=== PATIENT | male | born 1990 | race Caucasian/White ===

== ENCOUNTER 2025-08-03 12:46 | Outpatient (CLI) | payer BC, SELFPAY ==
--- NOTE | 2025-08-03 13:00 | MR_ITS ---
[address] [address] Phone:?[phone] Fax:?[phone] Referring Physician Information: Mj Lopez [address] [facility] [address] Phone:?[phone] Fax:?[phone] Patient:Kimmy Abdalla D.O.B:?1990 Sex:?Male Phone:?[phone] [facility] MRN:[id number] Exam Date:?08/03/2025 Original Report EXAM: MRI of the RIGHT KNEE, without contrast CLINICAL INFORMATION: Male, 35 years old, with right knee pain. INDICATION: Evaluate for loose body. PRIOR SURGERY: None reported. PLAIN FILMS: Knee radiographs dated 07/16/2025. COMPARISONS: No prior MRIs available. TECHNICAL INFORMATION: Using a 1.5T MR scanner and a localizing surface coil: sagittals: PD, PDFS coronals: PD, T2FS axials: PD, PDFS SEDATION: None CONTRAST: None FINDINGS: Knee joint: Effusion: Trace-small right knee effusion. Popliteal cyst: None. Loose bodies: None. Subcutaneous and extra-articular soft tissues: Unremarkable. Ligaments: ACL: Intact ACL anteromedial and posterolateral bundles, without sprain or tear. PCL: Intact PCL, without acute or chronic injury. MCL: Intact MCL superficial and deep layers, without injury. LCL: Intact LCL, without injury. Posterolateral corner: No posterolateral corner soft tissue injury. Popliteus, biceps femoris, iliotibial band, popliteofibular ligament and lateral gastrocnemius are intact. Posteromedial corner: No posteromedial corner soft tissue injury. Semimembranosus, pes anserine tendons and posterior oblique ligament are without injury, tendinopathy or bursitis. Extensor mechanism: Patellar tendon: Intact, without tendinopathy. Quadriceps tendon: Intact, without tendinopathy. Retinacula: Medial and lateral retinacula are intact. Fat pads: Mild edema-like signal is present in the superolateral aspect of Hoffa's fat pad (sagittal PDFS series 6 image 9). Medial compartment: Medial meniscus: No articular surface, meniscosynovial junction or root tear. No displacement or extrusion. A 9 x 11 x 7 mm ganglion cyst is incidentally noted near the posterior root of the medial meniscus (sagittal PDFS series 6 image 19 and axial T2FS series 4 image 23) Medial femoral condyle: No chondromalacia or osteochondral abnormality. Medial tibial plateau: No chondromalacia or osteochondral abnormality. Lateral compartment: Lateral meniscus: No articular surface, meniscosynovial junction or root tear. No displacement, extrusion or parameniscal cyst. Lateral femoral condyle: No chondromalacia or osteochondral abnormality. Lateral tibial plateau: No chondromalacia or osteochondral abnormality. Patellofemoral joint: Patella: No chondromalacia or osteochondral abnormality. Trochlea: No chondromalacia or osteochondral abnormality. Proximal tibiofibular joint: Unremarkable, without evidence of ligament sprain injury, joint effusion or adjacent marrow edema. Bones: No stress/occult fractures or other marrow edema/pathology. IMPRESSION: 1. 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 2. Approximately 9 x 11 x 7 mm ganglion cyst near the posterior root of the medial meniscus. However, there is no discrete medial or lateral meniscal tear. 3. Trace-small knee joint effusion. No popliteal (Adkins's) cyst. 4. No cruciate or collateral ligament sprain/tear. 5. No chondromalacia or osteochondral lesion/defect. 6. No osseous or myotendinous abnormality. BC Electronically signed on 08/04/2025 10:27:00 AM by Phillip Santizo M.D. Addendum A This MRI of the right knee is reviewed, as requested, with respect to the clinical suspicion/presentation of medial joint body. Upon further review there is an up to approximately 12 x 13 x 5 mm well-defined ovoid focus interposed between the proximal aspect of the medial retinaculum/capsule and the underlying anterior aspect of the medial humeral epicondyle (axial image 18; sagittal image 24; coronal image 11). Signal intensity of this focus is intermediate-low on proton density and fluid sensitive sequences. Morphology does not appear convincing for chondral loose body. In addition, there is no evidence for chondral donor site other than the presence of a very small chondral fissure of the inferomedial margin of the patella, of doubtful relationship (axial PD & T2FS series 3 & 4, image 11). MR appearance does not appear convincingly ossific, which appears supported by review of the 07/16/2025 radiographic series which does not show associated calcific/osseous component. This well-defined mass abuts the overlying anteromedial joint capsule but without extension through it. 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 No evidence for other soft tissue foci/masses. Other soft tissue tumor would would not be necessarily excluded with complete certainty although thought much less likely. This would be expected to be visualized at any contemplated arthroscopic evaluation. If arthroscopy is not performed at this time, clinical follow-up is warranted and if there is any progression of symptoms, consideration could be given to repeat MRI examination to evaluate for any interval change versus stability. F Electronically signed on 08/13/2025 5:05:00 PM by Frank Giang M.D.
== END 2025-08-03 12:47 | disposition home or self-care (01) ==
LOC: MRI 12:47
PROVIDERS: Visit Provider Physician Assistant
DX: M25.561 Pain in right knee (principal); M67.461 Ganglion, right knee; M25.461 Effusion, right knee
CPT/HCPCS: 73721

== ENCOUNTER 2025-10-23 06:45 | Day surgery (SDC) | payer BC, SELFPAY ==
[2025-10-16 07:29] VITALS: BMI 28.6
[2025-10-23] VITALS (11 sets, daily range): BP systolic 126–140; BP diastolic 70–91; PULSE 62–74; RESP 12–18; TEMP 36.3–36.9; O2SAT 93–98; BMI 26.4
--- NOTE | 2025-10-23 07:13 | W.PM.H&PU ---
History & Physical Update History & Physical Update H&P Reviewed and patient assessed: The following changes are noted below H&P Updates: Right medial-sided knee mass has been present for approximately a months. Mass continues to be symptomatic, patient now wishes for it to be surgically excised. Risks and benefits of procedure consisting of right knee arthroscopic mass excision were discussed with patient, all questions were answered and informed consent was obtained.
--- NOTE | 2025-10-23 07:16 | P.ORPRC_ITS ---
Procedure Note Date of procedure: 10/23/25 Procedure: PREOPERATIVE DIAGNOSIS: 1. Right knee intra-articular soft tissue mass POSTOPERATIVE DIAGNOSIS: 1. Right knee intra-articular soft tissue mass PROCEDURE: 1. Right knee arthroscopic soft tissue mass excision SURGEON: Sandro Deluca M.D. DIRECTOR CHEMISTRY: Nik Canseco An assistant film editor was critical for this case to aid in patient positioning, knee manipulation, instrument exchange, and wound closure. ANESTHESIA: General EBL: 0 mL TOURNIQUET: 11 minutes at 250 mmHg COMPLICATIONS: None SPECIMENS: Intra-articular soft tissue mass which measured 1.5 x 1 cm sent for pathology INDICATIONS: Patient is a 35-year-old male with a month history of soft tissue mass in the anterior medial aspect of his knee which was causing clicking and catching. MRI revealed benign-appearing soft tissue mass which appeared to be adherent to the capsule on the anterior medial aspect of the knee. Patient was of soft word surgical intervention consisting of arthroscopic mass excision. Prior to surgery risks and benefits were discussed with patient, all questions were answered, and informed consent was obtained. FINDINGS: Examination under anesthesia revealed small effusion but no warmth erythema. Full knee range of motion. Knee was stable to varus and valgus stress. Dustin's and posterior drawer test were negative. Intra-articular examination revealed a pedunculated soft tissue mass adherent to the anterior medial joint capsule that measured approximately 1 and half by 1 cm. The remainder of the knee was normal appearance. Normal appearing cartilage in the medial, lateral, patellofemoral compartments. Medial and lateral menisci were intact. ACL PCL were intact. No intra-articular loose bodies. DESCRIPTION OF PROCEDURE: Patient was seen preoperatively and operative site was marked. He was then brought the operating room and placed in the supine position on the OR table. 2 g IV Ancef was administered preoperatively for prophylaxis. Induction of anesthesia was provided by anesthesia staff. The rig ht lower extremity was prepped and draped in the appropriate sterile fashion. A surgical time-out was performed confirming patient identity, surgical site, and procedure. The right lower extremity was exsanguinated and tourniquet inflated to 250 mm Hg. Anterolateral and anteromedial portals were injected with 0.25% Marcaine with epinephrine. Anterior lateral portal was established. Anterior medial portal was established after localization with spinal needle. Diagnostic arthroscopy was performed with findings as noted above. A small portion of the retropatellar fat pad was excised to allow for adequate visualization. Attention was then directed to the soft tissue mass which was noted to be adherent to the anterior medial aspect of the joint capsule near the medial joint line. A pituitary rongeur was used to grasp the soft tissue mass and from the joint. Arthroscopic shaver was then used to debride the remnant stalk. Fluid was then drained from the joint and arthroscopic instruments were removed. Portal sites were closed with 3-0 Monocryl with Steri-Strips and sterile dressings were applied. Patient was awoken from anesthesia and transferred to the PACU in stable condition. PLAN: 1. Weightbear as tolerated right lower extremity. Gradually advance activities as tolerated. 2. Ice, elevation, acetominophen and/or ibuprofen for pain as needed. 3. Knee range of motion and quad sets/straight leg raise regularly 4. Follow up in orthopedic clinic in 1-2 weeks for a wound check.
[2025-10-23] MEDS: LACTATED RINGERS 1000 ML 1,000 ML 100 ML IV (07:26)
[2025-10-23] MEDS: SODIUM CHLORIDE 0.9 % (FLUSH) 10 ML SYRINGE IVF (07:26)
--- NOTE | 2025-10-23 08:35 | P.ANES_ITS ---
Anesthesia Charges Start Date/Time Anesthesia Start Date: 10/23/25 Anesthesia Start Time: 07:37 Stop Date/Time Anesthesia Stop Date: 10/23/25 Anesthesia Stop Time: 08:35 Coding CPT Codes CPT Codes: ANESTH KNEE JOINT SURGERY - 61172 ([id number]) P1 - NORMAL HEALTHY PATIENT, QK - PERSONAL CLOTHING LAUNDRY AIDE 2-4 CNCRNT ANES PROC, QX - SSRS REPORT DEVELOPER SVAurelia W/ MED DIRECTION
--- NOTE | 2025-10-23 08:35 | W.ANESCHARGE ---
Anesthesia Charges Start Date/Time Anesthesia Start Date: 10/23/25 Anesthesia Start Time: 07:37 Stop Date/Time Anesthesia Stop Date: 10/23/25 Anesthesia Stop Time: 08:35 Coding CPT Codes CPT Codes: ANESTH KNEE JOINT SURGERY - 05914 ([id number]) P1 - NORMAL HEALTHY PATIENT, QK - UI ENGINEER 2-4 CNCRNT ANES PROC, QX - SLIP CASTER SVAurelia W/ MED DIRECTION
--- NOTE | 2025-10-23 08:36 | P.ANES_ITS ---
Anesthesia Charges Start Date/Time Anesthesia Start Date: 10/23/25 Anesthesia Start Time: 07:37 Stop Date/Time Anesthesia Stop Date: 10/23/25 Anesthesia Stop Time: 08:35 Coding CPT Codes CPT Codes: ANESTH KNEE JOINT SURGERY - 11416 ([id number]) P1 - NORMAL HEALTHY PATIENT, QK - WINDOW TREATMENT INSTALLER 2-4 CNCRNT ANES PROC, QX - STYLIST ASSISTANT SVAurelia W/ MED DIRECTION
--- NOTE | 2025-10-23 08:36 | W.ANESCHARGE ---
Anesthesia Charges Start Date/Time Anesthesia Start Date: 10/23/25 Anesthesia Start Time: 07:37 Stop Date/Time Anesthesia Stop Date: 10/23/25 Anesthesia Stop Time: 08:35 Coding CPT Codes CPT Codes: ANESTH KNEE JOINT SURGERY - 57156 ([id number]) P1 - NORMAL HEALTHY PATIENT, QK - CLINICAL COURIER 2-4 CNCRNT ANES PROC, QX - PHARMACOGNOSY TEACHER SVAurelia W/ MED DIRECTION
== END 2025-10-23 10:13 | disposition home or self-care (01) ==
PROVIDERS: PCP Family Medicine; Visit Provider Orthopaedic Surgery
PROC: (CPT 29870; principal; 2025-10-23 08:00)
DX: D21.21 Benign neoplasm of connective and other soft tissue of right lower limb, including hip (principal)
CPT/HCPCS: 27327; 01400; J0690; J1100; J1885; J2250; J2405; J2704; J3010; J3490; J7120